=== PATIENT | female | born 1985 ===

== ENCOUNTER 2023-04-13 08:40 | Day surgery (SDC) | payer OTHER ==
[~2023-04-13] VITALS: Ht 175.3 cm; Wt 109.4 kg
[2023-04-13 09:56] VITALS: BP 152/97; PULSE 81; TEMP 97.5
--- NOTE | 2023-04-13 10:00 | NUR ---
PATIENT BECOMES VERY ANXIOUS AND TEARFUL WHEN IN THE ROOM. STATES THAT SHE DOES HAVE ANXIETY ISSUES AND IS SEEING A THERAPIST. NOT CURRENTLY ON ANY MEDICATIONS AND DOES NOT WISH TO HAVE ANYTHING AT THIS TIME. BECOMES MORE RELAXED AND LESS ANXIOUS WITH TALKING TO NURSE. FRIEND IN THE ROOM PER PATIENT REQUEST.
[2023-04-13 12:20] VITALS: BP 138/91; PULSE 83; TEMP 97.2
--- NOTE | 2023-04-13 12:20 | NUR ---
The patient arrived back to [place] [facility] from the endoscopy suite at this time. The patient appears very tearful and reports having rectal cramps. The patient was left on the cart to help with comfort. The patient's friend, Madeline, is present at her bedside. Vital signs were started at this time. Warm blankets provided. Call light is within reach.
[2023-04-13 12:33] VITALS: BP 142/75; PULSE 60
--- NOTE | 2023-04-13 12:33 | NUR ---
The patient was given a dose of Ativan 2 mg IV as ordered by Dr. Claudio to help with the rectal spasms. The patient agrees to try some apple juice and chocolate pudding. Vital signs appear stable.
[2023-04-13 12:50] VITALS: BP 143/83; PULSE 74
--- NOTE | 2023-04-13 12:50 | NUR ---
Dr. Claudio is at the patient's bedside to speak with her and her friend regarding the findings of the procedures.
[2023-04-13 13:05] VITALS: BP 137/86; PULSE 64
--- NOTE | 2023-04-13 13:10 | NUR ---
Discharge instructions were reviewed with the patient and her friend at this time. They both verbalized understanding and questions were answered at this time. The patient's IV to her right hand was removed and a pressure dressing was applied to the site. The nurse instructed the patient to get dressed and notify the staff when she is ready to be escorted out.
--- NOTE | 2023-04-13 13:20 | NUR ---
The patient was escorted out via wheelchair to a private vehicle by CHERIE Trujillo. The patient's belongings and discharge paperwork were sent with her. The patient's friend, Madeline, is present to drive her home.
== END 2023-04-13 13:20 | disposition home or self-care (01) ==
LOC: SDCO 08:40
DX: K62.89 Other specified diseases of anus and rectum (principal); R19.4 Change in bowel habit; K82.8 Other specified diseases of gallbladder; K80.50 Calculus of bile duct without cholangitis or cholecystitis without obstruction; R10.9 Unspecified abdominal pain; R19.7 Diarrhea, unspecified; R10.13 Epigastric pain; R93.3 Abnormal findings on diagnostic imaging of other parts of digestive tract; E66.9 Obesity, unspecified
CPT/HCPCS: J2060; J2704